=== PATIENT | male | born 1980 | race American Indian/Alaskan Native ===

== ENCOUNTER 2017-04-19 22:09 | Emergency (ER) | payer OTHER ==
[2017-04-19 22:28] VITALS: BMI 37.9
[2017-04-20 00:07] LABS: ADD MANUAL DIFF? NO
[2017-04-20] MEDS: Piperacillin/Tazobact 3.375 gm 100 ML IVPB STA ×2 (00:09→01:11)
[2017-04-20 00:10] LABS: BASO # 0.01 K/mm3 (0.0-2.0); BASO % 0.2 % (0.0-3.0); EOS # 0.3 (0.0-0.7); EOS % 6.4 % (1.5-5.0); GRAN # 1.92 (1.4-6.5); GRAN % 42.7 % (50.0-68.0); HEMATOCRIT 42.6 % (42.0-52.0); LYMPH # 1.8 (1.2-3.4); MEAN CELL VOLUME 85.5 fL (80.0-105.0); MEAN CORPUSCULAR HEMOGLOBIN 30.7 pg (25.0-35.0); MEAN CORPUSCULAR HGB CONC 35.9 g/dl (31.0-37.0); MONO # 0.5 (0.1-0.6); MONO % 10.7 % (1.0-6.0); PLATELET COUNT 217 10^3/uL (120.0-450.0); RED CELL DISTRIBUTION WIDTH 13.7 % (11.5-14.5); WHITE BLOOD COUNT 4.5 10^3/ul (4.5-11.0)
--- NOTE | 2017-04-20 00:10 | ED PDOC ---
Arrival/HPI - General Historian: Patient - History of Present Illness Time/Duration: > month Symptom Onset: Gradual Symptom Course: Unchanged Severity Level: Mild Activities at Onset: Rest Context: Home <Yrn Smith - Last Filed: 04/20/17 00:18> <Jessica Carey PA-C - Last Filed: 04/20/17 01:21> - General Chief Complaint: Abnormal Skin Integrity Time Seen by Provider: 04/19/17 23:09 - History of Present Illness Narrative History of Present Illness (Text): 04/19/17 23:09 Pedro Luis Edwards is a 36 year old male, whose past medical history includes cellulitis, who presents to the emergency department complaining of continued swelling to left leg since [facility] admission in 03/14. Patient states that he was admitted in 03/14 at [facility] for Cellulitis in left leg for 1 week, he was given IV antibiotics and discharged with PO antibiotics and Bactrim for 20 days. Patient states that the swelling and redness improved until antibiotics ran out. Patient says the swelling never fully healed and has residual swelling. Patient states that he meant to follow up symptoms with his PMD but never could due to work. Patient denies any recent travels, trauma, fever, chills, chest pain, shortness of breath, nausea, vomiting, diarrhea, urinary symptoms, back pain, neck pain, headache, dizziness , or any other complaints. PMD: None (Yrn Smith) Past Medical History - Provider Review Nursing Documentation Reviewed: Yes - Past History Past History: No Previous - Infectious Disease Hx of Infectious Diseases: None - Tetanus Immunization Tetanus Immunization: >10 years Ago - Reproductive Currently : No - Past Medical History Past Medical History: No Previous - Cardiac Hx Hypertension: Yes - Psychiatric Hx Psychophysiologic Disorder: No Hx Depression: No Hx Emotional Abuse: No Hx Physical Abuse: No Hx Substance Use: No - Past Surgical History Past Surgical History: Non-Contributing - Surgical History Hx Orthopedic Surgery: Yes (right thumb sx) - Anesthesia Hx Anesthesia: Yes Hx Anesthesia Reactions: No Hx Malignant Hyperthermia: No - Suicidal Assessment Feels Threatened In Home Enviroment: No <Yrn Smith - Last Filed: 04/20/17 00:18> Family/Social History - Physician Review Nursing Documentation Reviewed: Yes Family/Social History: No Known Family HX Smoking Status: Never Smoked Hx Alcohol Use: Yes Hx Substance Use: No Hx Substance Use Treatment: No <Gonsalo Smithitriy - Last Filed: 04/20/17 00:18> Allergies/Home Meds <Gonsalo Smithitriy - Last Filed: 04/20/17 00:18> <Jessica Carey PA-C - Last Filed: 04/20/17 01:21> Allergies/Adverse Reactions: Allergies No Known Allergies Allergy (Verified 06/23/16 00:23) Review of Systems - Physician Review All systems were reviewed & negative as marked: Yes - Review of Systems Constitutional: absent: Fevers, Night Sweats Eyes: absent: Vision Changes ENT: absent: Hearing Changes Respiratory: absent: SOB, Cough Cardiovascular: absent: Chest Pain Gastrointestinal: absent: Abdominal Pain Genitourinary Male: absent: Dysuria Musculoskeletal: Other (Swelling to left leg) Skin: absent: Rash Neurological: absent: Headache Endocrine: absent: Diaphoresis Hemo/Lymphatic: absent: Adenopathy Psychiatric: absent: Depression <LuisYrn - Last Filed: 04/20/17 00:18> Physical Exam Vital Signs Reviewed: Yes Temperature: Afebrile Blood Pressure: Hypertensive Pulse: Regular Respiratory Rate: Normal Appearance: Positive for: Well-Appearing, Non-Toxic, Comfortable Pain Distress: None Mental Status: Positive for: Alert and Oriented X 3 - Systems Exam Head: Present: Atraumatic, Normocephalic Pupils: Present: PERRL Extroacular Muscles: Present: EOMI Conjunctiva: Present: Normal Mouth: Present: Moist Mucous Membranes Neck: Present: Normal Range of Motion Respiratory/Chest: Present: Clear to Auscultation, Good Air Exchange. No: Respiratory Distress, Accessory Muscle Use Cardiovascular: Present: Regular Rate and Rhythm, Normal S1, S2. No: Murmurs Abdomen: Present: Normal Bowel Sounds. No: Tenderness, Distention, Peritoneal Signs Back: Present: Normal Inspection Upper Extremity: Present: Normal Inspection. No: Cyanosis, Edema Lower Extremity: Present: Swelling (moderate swelling to left ankle to distal calf), Other (posterior mid calf shallow 1 cm ulcer; no discharge, surrounding erythema, or tenderness) Neurological: Present: GCS=15, CN II-XII Intact, Speech Normal Skin: Present: Warm, Dry, Normal Color. No: Rashes Psychiatric: Present: Alert, Oriented x 3, Normal Insight, Normal Concentration <Yrn Smith - Last Filed: 04/20/17 00:18> Medical Decision Making - Lab Interpretations I have reviewed the lab results: Yes <Yrn Smith - Last Filed: 04/20/17 00:18> - Lab Interpretations I have reviewed the lab results: Yes (WBC normal) <Jessica Carey PA-C - Last Filed: 04/20/17 01:21> ED Course and Treatment: 04/20/17 23:09 Impression: 36 year old male complaining of continued swelling to left leg since discharge from [facility] in 03/14. Plan: -- LE ultrasound -- Blood Culture -- Wound Culture -- Labs -- Vancomycin and Zosyn -- Reassess and disposition Prior Visits: Notes and results from previous visits were reviewed. Patient last seen in ED on 06/13/16 for 4 days duration of a right ear ache. Patient was discharged home. Progress Notes: I was available for consultation during PA evaluation. The chart was reviewed by me, and I agree with disposition. The documented history was done by the physician semiconductor dies loader. The documented physical exam was done by the physician semiconductor dies loader. The documented procedures were done by the physician semiconductor dies loader. (Yrn Smith) Diff diagnosis include : acute cellulitis vs chronic cellulitis, to r/o DVT. Labs reviewed, WBC is wnl. US duplex of RLE shows (-) DVT, as per US tech. Patient was given vancomycin and zosyn IV. Diagnostic results discussed with the patient in great detail. Patient advised of the importance of outpatient f/ u. Given Rx for bactrim and keflex. Referral provided to ID organisational psychologist Dr. Valencia. Based on history, exam and diagnostic results plan will be for outpatient f/u with ID referral. Rx provided. Advised to finish both antibiotics and to elevate affected leg. Patient states he fully agrees with and understands discharge instructions. States that he agrees with the plan and disposition. Verbalized and repeated discharge instructions and plan. I have given the patient opportunity to ask any additional questions. Follow up with ID referral in 1-2 days without fail. Advised to take medication as prescribed. Return to the emergency room at any time for any new or worsening symptoms. (Aurelio WADDELL,Jessica Spencer) - Lab Interpretations Lab Results: 04/19/17 22:05 04/19/17 22:05 Lab Results 04/19/17 22:05: Sodium 141, Potassium 4.2, Chloride 105, Carbon Dioxide 27, Anion Gap 13, BUN 13, Creatinine 1.1, Est GFR ( Amer) > 60, Est GFR (Non- Af Amer) > 60, Random Glucose 89, Calcium 9.3, Total Bilirubin 0.7, AST 23, ALT 24, Alkaline Phosphatase 72, Total Protein 7.9, Albumin 4.3, Globulin 3.6, Albumin/Globulin Ratio 1.2 04/19/17 22:05: PT 11.0, INR 1.02, APTT 28.4 04/19/17 22:05: WBC 4.5, RBC 4.98, Hgb 15.3, Hct 42.6, MCV 85.5, MCH 30.7, MCHC 35.9, RDW 13.7, Plt Count 217, MPV 9.0, Gran % 42.7 L, Lymph % (Auto) 40.0 H, [place] % (Auto) 10.7 H, Eos % (Auto) 6.4 H, Baso % (Auto) 0.2, Gran # 1.92, Lymph # 1.8, [place] # 0.5, Eos # 0.3, Baso # 0.01 - RAD Interpretation Narrative RAD Interpretations (Text): 04/20/17 01:18 US duplex RLE: (-) DVT, as per US tech. (Aurelio WADDELL,Jessica Spencer) Radiology Orders: 04/19/17 23:34 DUPLEX LOWER EXTRM VEIN RIGHT [US] Stat - Medication Orders Current Medication Orders: Discontinued Medications Vancomycin HCl (Vancomycin 1gm) 1 gm in 250 mls @ 167 mls/hr IVPB STAT STA PRN Reason: Protocol Stop: 04/20/17 00:58 Last Admin: 04/20/17 01:11 Dose: 167 mls/hr Piperacillin Sod/Tazobactam Sod (Zosyn 3.375 In Ns 100ml) 100 mls @ 200 mls/hr IVPB STAT STA PRN Reason: Protocol Stop: 04/20/17 00:01 Last Admin: 04/20/17 01:11 Dose: 200 mls/hr - Scribe Statement The provider has reviewed the documentation as recorded by the Scribe <Yrn Smith - Last Filed: 04/20/17 00:18> <Jessica Carey PA-C - Last Filed: 04/20/17 01:21> - Scribe Statement Laura Farr Provider Scribe Attestation: All medical record entries made by the Scribe were at my direction and personally dictated by me. I have reviewed the chart and agree that the record accurately reflects my personal performance of the history, physical exam, medical decision making, and the department course for this patient. I have also personally directed, reviewed, and agree with the discharge instructions and disposition. (Yrn Smith) Disposition/Present on Arrival - Present on Arrival History of DVT/PE: No History of Uncontrolled Diabetes: No Urinary Catheter: No History of Decub. Ulcer: No History Surgical Site Infection Following: None <Yrn Smith - Last Filed: 04/20/17 00:18> - Present on Arrival Any Indicators Present on Arrival: No History of DVT/PE: No History of Uncontrolled Diabetes: No Urinary Catheter: No History of Decub. Ulcer: No - Disposition Have Diagnosis and Disposition been Completed?: Yes Disposition Time: 00:15 Patient Plan: Discharge <Jessica Carey PA-C - Last Filed: 04/20/17 01:21> - Disposition Diagnosis: Cellulitis Disposition: HOME/ ROUTINE Patient Problems: Current Active Problems Problem Status Onset Cellulitis Acute Condition: GOOD Discharge Instructions (ExitCare): Cellulitis (ED) Print Language: SYRIAC Additional Instructions: Thank you for letting us take care of you today. You were treated for chronic cellulitis. The emergency medical care you received today was directed at your acute symptoms. If you were prescribed any medication, please fill it and take as directed. It may take several days for your symptoms to resolve. Return to the Emergency Department if your symptoms worsen, do not improve, or if you have any other problems. Please contact ID doctor in 2 days for re-evaluation and follow up. Bring any paperwork you were given at discharge with you along with any medications you are taking to your follow up visit. Our treatment cannot replace ongoing medical care by a primary care provider (PCP) outside of the emergency department. Thank you for allowing the [facility] team to be part of your care today. Prescriptions: Cephalexin [Keflex] 500 mg PO Q6 #28 capsule Sulfamethoxazole/Trimethoprim [Bactrim DS 800 mg-160 mg] 2 tab PO BID #28 tab Referrals: PCP,NO [Primary Care Provider] - Follow up with primary Forms: WORK NOTE
[2017-04-20 00:36] LABS: INR 1.02 (0.93-1.08); PARTIAL THROMBOPLASTIN TIME 28.4 Seconds (23.7-30.8)
[2017-04-20 00:57] LABS: ALB/GLOB RATIO 1.2 (1.1-1.8); ALKALINE PHOSPHATASE 72 U/L (38-133); ALT/SGPT 24 U/L (7-56); AST/SGOT 23 U/L (15-59); BILIRUBIN,TOTAL 0.7 mg/dL (0.2-1.3); BLOOD UREA NITROGEN 13 mg/dL (7-21); CALCIUM 9.3 mg/dL (8.4-10.5); CARBON DIOXIDE 27 mmol/L (21-33); CHLORIDE 105 mmol/L (98-107); GFR AFRICAN-AMERICAN > 60; GLUCOSE,RANDOM 89 mg/dL (70-110); POTASSIUM 4.2 mmol/L (3.6-5.0); SODIUM 141 mmol/L (132-148); TOTAL PROTEIN 7.9 g/dL (5.8-8.3)
[2017-04-20] MEDS: Vancomycin 1gm in NS 250ml 1 GM/250 ML BAG IVPB STA ×2 (01:11→02:57)
[2017-04-20 02:55] VITALS: BP 133/69; PULSE 74; RESP 18; TEMP 99.2; O2SAT 100
--- NOTE | 2017-04-20 10:11 | US ---
PROCEDURE: Right lower extremity venous US HISTORY: Leg pain and swelling. Evaluate for DVT. PHYSICIAN(S): Hamlet Gonzalez M.D. TECHNIQUE: Duplex sonography and color-flow Doppler with graded compression were used to evaluate the deep venous system of the right lower extremity. FINDINGS: The visualized deep venous system of the right lower extremity is sonographically normal and compressible. Normal waveforms and augmentation are seen. There is no sonographic evidence for deep venous thrombosis in the visualized segments of the right lower extremity. IMPRESSION: 1. No sonographic evidence for deep venous thrombosis in the visualized segments of the right lower extremity.
== END 2017-04-20 02:55 | disposition home or self-care (01) ==
LOC: ED 22:09
DX: L03.116 Cellulitis of left lower limb (principal); I10 Essential (primary) hypertension
CPT/HCPCS: 80053; 85025; 85610; 85730; 87040; 87070; 93971; 96365; 96367; 99284; J2543